=== PATIENT | female | born 1950 | race Caucasian/White ===

== ENCOUNTER → 2019-09-01 11:26 | Outpatient (CLI) | payer MEDICARE, OTHER, SELFPAY ==
--- NOTE | 2019-09-01 11:32 | XR_ITS ---
PROCEDURE: XR CHEST 2V CLINICAL HISTORY: SOB Heart disease COMPARISON: [facility] w ventricle from 04/26/2019 CA echo transesophageal from 05/06/2019 FINDINGS: Mild cardiomegaly. Prior median sternotomy with aortic valve replacement. No CHF. The lungs are clear without infiltrates, suspicious nodules, or pleural effusions. Lower thoracic spine and upper lumbar spine are not well delineated. Degenerative changes are present in the spine. IMPRESSION: Cardiomegaly. Prior aortic valve replacement Dictated by: Deepak Freire MD 09/01/2019 18:08 Electronically signed by Deepak Freire MD in [place] 09/01/2019 18:08
== END ==
PROVIDERS: PCP Student in an Organized Health Care Education/Training Program; Visit Provider Internal Medicine
DX: R06.00 Dyspnea, unspecified (principal)
CPT/HCPCS: 71046

== ENCOUNTER → 2019-09-13 10:42 | Outpatient (CLI) | payer MEDICARE, OTHER, SELFPAY ==
--- NOTE | 2019-09-13 10:43 | CA_ITS ---
APPROVED REPORT EXAM: Comprehensive 2D, Doppler, and color-flow Echocardiogram Core Maker: Sade Hallman RDCS Ht: 5 ft 2 in Wt: 168lbs BSA: 1.78 BP: 100/70 mmHg Indications: AVR PORCINE,MR, POND 2D Dimensions LVOT 1.56 cm (M/F) 1.5-2.5 M-Mode Dimensions RVDd 2.65 cm (0.9-2.6) LVDd 6.39 cm (3.5-5.7) LVDs 4.58 cm (3.5-5.7) IVSd 0.64 cm (0.6-1.1) PWd 0.76 cm (0.6-1.1) EF (Teich) 53.70% FS 28.30% EDV (Teich) 207.80 mL ESV (Teich) 96.30 mL LV Diastology E/A Ratio 0.89 Aortic Valve LVOT Max 107.00 (70-110 cm/s) LVOT VTI 26.74 cm AO VTI 202.70 (18-25 cm) Mitral Valve MV A Velocity 72.00 (40-130 cm/s) Left Ventricle Left atrium is moderately enlarged, left ventricle is mildly dilated, there is preserved left ventricular systolic function, visually estimated ejection fraction 55% with no regional wall motion abnormality. Diastolic parameters are inconclusive. Right Ventricle Right atrium and right ventricular mildly enlarged with normal contractility. Aortic Valve There is a bioprosthetic valve noted in the aortic position, the valve is well-seated, the aortic outflow velocity is mildly increased, the mean gradient across valve is within acceptable range. There is no aortic insufficiency. Mitral Valve Mitral valve leaflets are minimally thickened, there is degenerative changes present both anterior and posterior mitral leaflet, there is no mitral stenosis, there is mitral regurgitation present which is difficult to quantify this is likely in severe range, a transesophageal echocardiogram is recommended for further evaluation. Tricuspid Valve Tricuspid valve is grossly normal, there is moderate tricuspid regurgitation, calculated right ventricular systolic pressure is 52 mmHg consistent with moderately elevated right ventricular systolic pressure. Pulmonic Valve Pulmonic valve is poorly visualized. Great Vessels Aortic root is normal size. Pericardium No significant pericardial effusion noted. Conclusion 1. Biatrial enlargement, mildly dilated left ventricle, mild concentric left ventricular hypertrophy, visually estimated ejection fraction 55% with no regional wall motion abnormality, diastolic parameters are inconclusive. 2. Normal functioning bioprosthetic valve in the aortic position without aortic outflow obstruction or aortic insufficiency. 3. Abnormal mitral valve as described above, there is mitral regurgitation present which is difficult to quantify, this is likely in severe range, if clinically indicated a transesophageal echocardiogram is recommended. 4. Moderate tricuspid regurgitation, calculated right ventricular systolic pressure is 52 mmHg which is moderately elevated. 5. No significant pericardial effusion noted. Electronically signed by : Rodrigo Contreras, 09/13/2019 20:57:51
== END ==
PROVIDERS: PCP Student in an Organized Health Care Education/Training Program; Visit Provider Physician Assistant
DX: I34.0 Nonrheumatic mitral (valve) insufficiency (principal); R06.00 Dyspnea, unspecified; R07.89 Other chest pain; Z95.2 Presence of prosthetic heart valve
CPT/HCPCS: 93306

== ENCOUNTER → 2021-02-28 11:07 | Outpatient (CLI) | payer MEDICARE, OTHER, SELFPAY ==
--- NOTE | 2021-02-28 11:09 | CA_ITS ---
APPROVED REPORT EXAM: Comprehensive 2D, Doppler, and color-flow Echocardiogram Public Health Microbiologist: Anne Panchal CRT Ht: 5 ft 2 in Wt: 169lbs BSA: 1.78 BP: 119/68 mmHg Indications: bovine AVR, MR severe mod tr - RIAZ, cad, SOB, 2D Dimensions LVOT 1.59 cm (M/F) 1.5-2.5 LA Volume 48.00 mL LA Volume Index 27.00 mL/m2 (M/F) 16-34 M-Mode Dimensions RVDd 2.40 cm (0.9-2.6) LA Diam 3.89 cm (1.9-4.0) LVDd 5.46 cm (3.5-5.7) Ao Diam 3.23 cm (2.0-3.7) LVDs 3.85 cm (3.5-5.7) IVSd 1.40 cm (0.6-1.1) PWd 0.97 cm (0.6-1.1) EF (Teich) 55.90% FS 29.50% EDV (Teich) 145.00 mL TAPSE 1.54 (<1.7) ESV (Teich) 63.90 mL LV Diastology E Decel Time 277.00 (160-240 msec) E/A Ratio 0.19 MED E' 9.80 (< 7 cm/sec) MED A' 10.80 cm/s E'/MED E' Ratio 6.31 (>14) LAT E' 8.50 (<10 cm/sec) LAT A' 10.50 cm/s E/LAT E' Ratio 7.27 (>14) Aortic Valve LVOT Max 141.00 (70-110 cm/s) LVOT VTI 26.76 cm AoV Peak Leoncio. 254.00 (50-130 cm/s) AO Peak GR. 26.00 mmHg AO Mean GR. 14.60 (<5 mmHg) AO VTI 50.15 (18-25 cm) FAYE (VTI) 1.06 (2.5-4.5 cm2) Mitral Valve MV A Velocity 327.00 (40-130 cm/s) E/A Ratio 0.19 MV Decel. Time 277.00 (160-240 ms) Pulmonary Valve PV Peak Velocity 71.00 (50-150 cm/s) Tricuspid Valve TR P. Velocity 260.00 cm/s RAP Estimate 10.00 mmHg RVSP 37.10 mmHg Left Ventricle Left atrium is moderately enlarged, left ventricle is normal size, there is mild concentric left ventricular hypertrophy, visually estimated ejection fraction 55% with no regional wall motion abnormality. Grade 1 diastolic dysfunction seen without tissue Doppler evidence of raised left atrial pressure. Right Ventricle Right atrium and right ventricle are mildly enlarged with normal contractility. Aortic Valve There is bioprosthetic valve noted in the aortic position, with the mean gradient across valve is 16 mmHg, there is no aortic insufficiency. Mitral Valve There are degenerative changes present both anterior posterior mitral leaflet, there is mild focal prolapse of the posterior mitral leaflet, there is mitral regurgitation present which is difficult to quantify, this is at least in moderate to severe range, if clinically indicated a transesophageal echocardiogram is recommended. Tricuspid Valve Tricuspid valve leaflets are minimally thickened, there is mild tricuspid regurgitation, calculated right ventricular systolic pressure is 37 mmHg. Pulmonic Valve Pulmonic valve is poorly visualized. Great Vessels Aortic root is normal size. Inferior vena cava is normal size with normal inspiratory collapse. Pericardium No significant pericardial effusion noted. Conclusion 1. Biatrial enlargement, normal left ventricular size, mild concentric left ventricular hypertrophy, visually estimated ejection fraction 55% with no regional wall motion abnormality, grade 1 diastolic dysfunction seen without tissue Doppler evidence of raise left atrial pressure. 2. Normal functioning bioprosthetic valve in the aortic position without significant aortic outflow obstruction or aortic insufficiency. 3. Abnormal mitral valve as described above, there is moderate to severe mitral regurgitation present, if clinically indicated transesophageal echocardiogram is recommended. 4. No significant pericardial effusion noted. Electronically signed by : Rodrigo Contreras, 03/01/2021 15:18:57
[2021-02-28 12:24] LABS: Anion Gap 13.1 mEq/L (5-15); Blood Urea Nitrogen 14 mg/dl (7-17); Calcium 9.4 mg/dl (8.4-10.2); Carbon Dioxide 27 mmol/L (22.0-30.0); Chloride 104 mmol/L (98-107); Estimated Glomerular Filt Rate 55 ml/min (>60); GFR (African American) 66 ML/MIN (>60); Glucose 99 mg/dl (74-100); Potassium 4.1 mmoL/L (3.5-5.1); Sodium 140 mmol/L (136-145)
[2021-02-28 12:33] LABS: NT Pro Brain Natriuretic Pep. 152 pg/mL (0-125)
== END ==
PROVIDERS: PCP Student in an Organized Health Care Education/Training Program; Visit Provider Urology
DX: I34.0 Nonrheumatic mitral (valve) insufficiency (principal); R06.09 Other forms of dyspnea; R07.89 Other chest pain; Z95.2 Presence of prosthetic heart valve
CPT/HCPCS: 36415; 80048; 83880; 93306

== ENCOUNTER 2021-03-16 08:30 | Day surgery (SDC) | payer MEDICARE, OTHER, SELFPAY ==
[2021-03-16] VITALS (19 sets, daily range): BP systolic 95–151; BP diastolic 53–81; PULSE 70–81; RESP 13–20; O2SAT 90–100; BMI 30.9
--- NOTE | 2021-03-16 | IR_ITS ---
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 COMPLICATIONS NONE Estimated Blood Loss: LESS THAN 10 ML TECHNIQUE One percent lidocaine was used to anesthetize the right anterior aspect of the right wrist. The right radial artery was accessed via the Seldinger technique and a 6 Korean hydrophilic sheath was placed in the right radial artery. Following this one percent lidocaine was used to anesthetize the right anterior aspect of the right neck. The right femoral vein was accessed via the Seldinger technique and a 7 Korean sheath was placed in the right femoral vein. Following this an arterial cocktail was administered using 5000U heparin, 2.5 mg verapamil, 1mg Lidocaine and 800mcg nitroglycerin into the right radial sheath. A trap catheter was used to perform selective coronary angiography while a [place]-Geri catheter was used to perform right heart catheterization. Saturations were obtained in the pulmonary artery and right atrium. At the end of the procedure the arterial sheath was removed good hemostasis was achieved using Traclet band. Patient was transferred to the postop holding area in stable condition for venous sheath removal. ANGIOGRAPHIC RESULTS The left main artery Normal The left anterior descending artery Normal The circumflex artery Normal The right coronary artery Dominant normal The BARON ventriculogram reveals Not performed The left ventricular end-diastolic pressure Not obtained Right atrial pressure 7 mmHg Right ventricular 28 over 7 mmHg Pulmonary artery pressure 30/20 mmHg Pulmonary occlusion pressure 20 mmHg RA saturation 72% Pulmonary saturation 72% IMPRESSION Normal coronary arteries Mild pulmonary hypertension Elevated pulmonary occlusion pressure Known mitral regurgitation PLAN 1. Proceed with RIAZ for better evaluation of mitral regurgitation Electronically signed by : Nikunj Veloz, 03/16/2021 10:43:28
--- NOTE | 2021-03-16 | CA_ITS ---
APPROVED REPORT EXAM: Comprehensive 2D, Doppler, and color-flow Echocardiogram Eeg Technologist: Sindy Kathleen RT(R) Ht: 5 ft 2 in Wt: 169lbs BSA: 1.78 BP: 119/68 mmHg Indications: AI, severe MR, MVP, hx Bovine AV, SOB Left Ventricle Left ventricle is normal size, visually estimated ejection fraction 50% with no regional wall motion abnormality in the obtained views. Right Ventricle Right ventricle is mildly enlarged with normal contractility. Atria Left atrium is moderately enlarged, left atrial appendage free of thrombus, there is adequate appendage flow by spectral Doppler. Aortic Valve Aortic valve is bioprosthetic without any restriction in the leaflet mobility, there is no aortic insufficiency. Mitral Valve Mitral valve leaflets have degenerative changes present both anterior posterior mitral leaflet, there is mild focal prolapse of the posterior mitral leaflet, there is mitral regurgitation present which is likely in severe range, the vena contractor measure over centimeter. There is blunting of the systolic forward flow seen in the pulmonary vein. Tricuspid Valve Tricuspid valve leaflets are minimally thickened, there is moderate to severe tricuspid regurgitation. Pulmonic Valve Pulmonic valve is grossly normal. Great Vessels Aortic root is normal size. Pericardium No significant pericardial effusion noted. Conclusion 1. Biatrial enlargement, normal left ventricular size, visually estimated ejection fraction 50% with no regional wall motion abnormality. 2. Abnormal mitral valve as described above, likely severe mitral regurgitation, vena contractor measures over 1 cm. There is no mitral stenosis. 3. Moderate to severe tricuspid regurgitation. 4. No significant pericardial effusion noted. 5. Agitated saline contrast study fails 25 intracardiac shunt. Electronically signed by : Rodrigo Contreras, 03/16/2021 15:20:07
[2021-03-16 09:16] LABS: Basophils # 0.1 K/mm3 (0-0.2); Basophils % 0.6 % (0.1-2.0); Eosinophils # 0.2 K/mm3 (0.0-0.4); Eosinophils % 2.3 % (0.1-12.0); Hematocrit 37.7 % (37.0-47.0); Hemoglobin 12.4 g/dL (12.2-16.2); Lymphocytes # 2.8 K/mm3 (0.7-4.5); Lymphocytes % 30.8 % (10-50); Mean Corpuscular HGB Conc 32.9 g/dL (31.8-35.4); Mean Corpuscular Hemoglobin 28.3 pg (27.0-31.2); Monocytes # 0.6 K/mm3 (0.1-1.0); Monocytes % 6.5 % (1.7-9.3); Neutrophils # 5.4 K/mm3 (1.8-7.8); Neutrophils % 59.7 % (37.0-80.0); Platelet Count 266 K/mm3 (142-424); Red Blood Count 4.38 M/mm3 (4.20-5.40); Red Cell Distribution Width 13.7 % (11.5-17.5)
[2021-03-16 09:36] LABS: Chloride 104 mmol/L (98-107); Potassium 3.8 mmoL/L (3.5-5.1); Sodium 140 mmol/L (136-145)
[2021-03-16 09:39] LABS: Anion Gap 11.8 mEq/L (5-15); Blood Urea Nitrogen 9 mg/dl (7-17); Calcium 9.6 mg/dl (8.4-10.2); Carbon Dioxide 28 mmol/L (22.0-30.0); Creatinine Clearance Estimated 62 mL/min (50-200); Estimated Glomerular Filt Rate 55 ml/min (>60); GFR (African American) 66 ML/MIN (>60); Glucose 98 mg/dl (74-100)
[2021-03-16 11:19] LABS: CATHL Arterial O2 SAT 72.9 % (90-100); CATHL Venous O2 SAT 72.8 % (75-80)
--- NOTE | 2021-03-16 13:43 | SUR.PREOP ---
see [facility] procedure h&p, done the same day.
--- NOTE | 2021-03-16 14:28 | SUR.PHASEII ---
see other procedure for discharge information
--- NOTE | 2021-03-16 14:34 | P.PN_ITS ---
[facility] Anesthesia Checklist - Patient Identification Patient Identification: Arm Band - Structural Data Admitted From: Home Planned Operative Procedure/s: RIAZ Consent for Planned Operative Procedure(s) Verified: Yes Verified Documents: Surgical Consent, History and Physical - NPO Status Verified Time NPO: 00:00 - Additional verifications Anesthesia Reactions: No - Airway Assessment C-Spine Mobility Assessed: Yes (mp2) TMJ Mobility Assessed: Yes Dentition: Good Dentition - Neurological Assessment Level of Consciousness: Awake, Alert - Anesthesia Plan Anesthesia Risk discussed: Yes Anesthesia Plan: Verified ASA Class: III Anesthesia Type: MAC [facility] History I have reviewed the patient's past medical history: Yes Medical History: Reports:: Anxiety, Coronary Artery Disease, Gastroesophageal Reflux Disease(GERD), Hyperlipidemia, Hypertension, Palpitations, Valvular Heart Disease Denies:: Diabetes Mellitus Type 1, Diabetes Mellitus Type 2, Internal Pacemaker, Lung Disease, Seizures *Have you ever received a pneumonia vaccine?: Yes *Have you received a flu vaccine this season?: No Anesthesia experience/problems:: nac Laterality Cases: Right: Total Hip Replacement Other Surgeries: Yes: Cardiac Catheterization, Cardiac Surgery (AVR). No: Pacemaker Amputation: No Fractures: No - *Social History Last grade of school completed: High school graduate Smoking Status: Never smoker Alcohol Intake: never Substance Use Type: denies use *Occupational Status:: retired Housing: house Household Members: spouse *Travel in the last 8 weeks: Inside the [place] - Psychiatric History Pschychiatric History:: Reports:: Anxiety Family Hx:: Coronary Artery Disease
== END 2021-03-16 15:12 | disposition home or self-care (01) ==
LOC: CATHLAB 08:31
PROVIDERS: Internal Medicine Cardiovascular Disease; PCP Student in an Organized Health Care Education/Training Program; Visit Provider Internal Medicine
DX: I27.20 Pulmonary hypertension, unspecified (principal); I34.0 Nonrheumatic mitral (valve) insufficiency; I25.118 Atherosclerotic heart disease of native coronary artery with other forms of angina pectoris; Z95.2 Presence of prosthetic heart valve; I10 Essential (primary) hypertension; E78.5 Hyperlipidemia, unspecified; Z79.899 Other long term (current) drug therapy; Z88.8 Allergy status to other drugs, medicaments and biological substances; K21.9 Gastro-esophageal reflux disease without esophagitis
CPT/HCPCS: 80048; 82810; 85025; 93312; 93460; 99152; 99153; C1725; C1769; C1894; J1644; Q9967; U0003

== ENCOUNTER → 2021-09-14 12:02 | Outpatient (CLI) | payer MEDICARE, OTHER, SELFPAY ==
[2021-09-14 12:33] LABS: Basophils % 0.6 % (0.1-2.0); Eosinophils # 0.2 K/mm3 (0.0-0.4); Eosinophils % 2.2 % (0.1-12.0); Hematocrit 38.3 % (37.0-47.0); Hemoglobin 12.2 g/dL (12.2-16.2); Lymphocytes # 1.6 K/mm3 (0.7-4.5); Lymphocytes % 22.9 % (10-50); Mean Corpuscular Hemoglobin 27.6 pg (27.0-31.2); Mean Corpuscular Volume 86.5 fl (81-99); Mean Platelet Volume 8.8 fl (7.4-10.4); Monocytes # 0.6 K/mm3 (0.1-1.0); Neutrophils # 4.5 K/mm3 (1.8-7.8); Neutrophils % 65.4 % (37.0-80.0); Platelet Count 257 K/mm3 (142-424); Red Blood Count 4.43 M/mm3 (4.20-5.40); Red Cell Distribution Width 14.3 % (11.5-17.5); White Blood Count 6.9 K/mm3 (4.8-10.8)
[2021-09-14 12:48] LABS: Chloride 103 mmol/L (98-107); Potassium 4.5 mmoL/L (3.5-5.1); Sodium 139 mmol/L (136-145)
[2021-09-14 12:51] LABS: Anion Gap 13.5 mEq/L (5-15); Blood Urea Nitrogen 16 mg/dl (7-17); Carbon Dioxide 27 mmol/L (22.0-30.0); Estimated Glomerular Filt Rate 49 ml/min (>60); GFR (African American) 59 ML/MIN (>60)
[2021-09-14 12:52] LABS: Calcium 9.7 mg/dl (8.4-10.2); Glucose 135 mg/dl (74-100)
[2021-09-14 13:02] LABS: NT Pro Brain Natriuretic Pep. 115 pg/mL (0-125)
== END ==
PROVIDERS: Visit Provider Internal Medicine Cardiovascular Disease
DX: I34.0 Nonrheumatic mitral (valve) insufficiency (principal); R00.2 Palpitations; R06.09 Other forms of dyspnea; R07.89 Other chest pain; Z95.2 Presence of prosthetic heart valve; R06.02 Shortness of breath
CPT/HCPCS: 36415; 80048; 83880; 85025

== ENCOUNTER → 2021-12-28 11:45 | Outpatient (CLI) | payer MEDICARE, OTHER, SELFPAY ==
[2021-12-28 13:42] LABS: Alanine Aminotransferase 19 U/L (12-78); Albumin Level 4.4 g/dl (3.5-5.0); Alkaline Phosphatase 66 U/L (38-126); Aspartate Amino Transferase 30 U/L (14-36); Bilirubin,Direct 0.2 mg/dl (0.0-0.4); Bilirubin,Indirect 0.3 mg/dL (0.0-0.9); Bilirubin,Total 0.5 mg/dl (0.2-1.3); Bilirubin,Unconjugated 0.3 mg/dL (0.0-1.1); Blood Urea Nitrogen 19 mg/dl (7-17); Calcium 9.1 mg/dl (8.4-10.2); Carbon Dioxide 28 mmol/L (22.0-30.0); Chloride 100 mmol/L (98-107); Chol/HDL Ratio 2.1 (1-3.5); Cholesterol 173 mg/dl (140-200); Estimated Glomerular Filt Rate 44 ml/min (>60); GFR (African American) 53 ML/MIN (>60); Glucose 110 mg/dl (74-100); HDL Cholesterol 81 mg/dl (40-60); Sodium 136 mmol/L (136-145); Total Protein,Serum 6.7 g/dl (6.3-8.2); Triglycerides 126 mg/dl (30-150); VLDL Cholesterol 25 mg/dL (0-40)
[2021-12-28 13:53] LABS: Direct LDL Cholesterol 54.74 mg/dL (100-129)
== END ==
PROVIDERS: PCP Student in an Organized Health Care Education/Training Program; Visit Provider Internal Medicine Cardiovascular Disease
DX: I34.0 Nonrheumatic mitral (valve) insufficiency (principal); R07.9 Chest pain, unspecified; R42 Dizziness and giddiness; Z95.2 Presence of prosthetic heart valve; Z95.818 Presence of other cardiac implants and grafts; Z98.890 Other specified postprocedural states
CPT/HCPCS: 36415; 80048; 80061; 80076

== ENCOUNTER → 2022-05-10 10:06 | Outpatient (CLI) | payer MEDICARE, OTHER, SELFPAY ==
--- NOTE | 2022-05-10 10:06 | CA_ITS ---
FINAL REPORT TECHNIQUE: Triplett scale, color and spectral doppler images of the bilateral carotid arteries were obtained. CLINICAL HISTORY: dizziness/unsteady gait,HTN FINDINGS: Peak systolic velocity in the right internal carotid artery is 67 cm/sec. The internal carotid to common carotid artery ratio is 1.15. There is no significant carotid artery stenosis and no significant plaque formation. The right vertebral artery is normal in direction. Peak systolic velocity in the left internal carotid artery is in 114 cm/sec. The internal carotid to common carotid artery ratio is 1.84. There is no significant carotid artery stenosis and mild plaque formation. The left vertebral artery is normal in direction. IMPRESSION: No ultrasound evidence of hemodynamically significant carotid artery stenosis. Normal peak systolic velocities and normal internal to common carotid artery ratios bilaterally. Reviewed, Interpreted and Dictated by Bianka Musa MD Transcribed by Elke Morales Authenticated and [facility]
== END ==
PROVIDERS: PCP Student in an Organized Health Care Education/Training Program; Visit Provider Internal Medicine Cardiovascular Disease
DX: R26.81 Unsteadiness on feet (principal); R42 Dizziness and giddiness
CPT/HCPCS: 93880

== ENCOUNTER → 2022-12-27 14:23 | Outpatient (CLI) | payer MEDICARE, OTHER, SELFPAY ==
[2022-12-27 16:37] LABS: Chloride 103 mmol/L (98-107); Sodium 137 mmol/L (136-145)
[2022-12-27 16:38] LABS: Potassium 4.5 mmoL/L (3.5-5.1)
[2022-12-27 16:40] LABS: Blood Urea Nitrogen 13 mg/dl (7-17); Estimated Glomerular Filt Rate 40 ml/min (>60); GFR (African American) 49 ML/MIN (>60)
[2022-12-27 16:41] LABS: Anion Gap 10.5 mEq/L (5-15); Calcium 9.3 mg/dl (8.4-10.2); Carbon Dioxide 28 mmol/L (22.0-30.0); Glucose 85 mg/dl (74-100)
== END ==
PROVIDERS: PCP Student in an Organized Health Care Education/Training Program; Visit Provider Internal Medicine Cardiovascular Disease
DX: R06.09 Other forms of dyspnea (principal); Z95.2 Presence of prosthetic heart valve; Z95.818 Presence of other cardiac implants and grafts; Z98.890 Other specified postprocedural states
CPT/HCPCS: 36415; 80048

== ENCOUNTER → 2023-07-24 11:05 | Outpatient (CLI) | payer MEDICARE, OTHER, SELFPAY ==
--- NOTE | 2023-07-24 11:05 | NM_ITS ---
APPROVED REPORT Exam: Nuclear Stress Test Indication: dizziness..soa..fatigue Patient Location: Outpatient Stress Tech: Maribell Hernandez GA Tech:NESSA Mcgrath RT(R)(N) Ht: 5 ft 2 in Wt: 165 lbs Bra Size: b HR: 63 bpm BP: 137/74 mmHg BSA: 1.76 m2 TID: 1.29 BMI: 30.1 History: dizziness..soa..fatigue Procedure: Patient received 0.4 mg of intravenous Lexiscan, resting heart rate 63 bpm, resting blood pressure 137/74 mmHg, with Lexiscan maximum heart rate achieved was 79 bpm which is 85 % of the maximum predicted heart rate and blood pressure was 137/74 mmHg. With Lexiscan, patient denied any complaint of chest pain. The patient was not able to lay on her abdomen for prone images. Cardiac Stress and Resting SPECT Images: Cardiac Stress and Resting SPECT images were obtained using technetium 99m Myoview 31.8 mCi stress and 10.67 mCi at rest. The patient could not lie on her abdomen. Therefore, prone stress imaging could not be obtained. This may affect the diagnostic interpretation of the study findings. Resting and stress imaging in supine position demonstrate no evidence of fixed or reversible perfusion defects. There is increased transient ischemic dilatation ratio (TID 1.29), suggestive of possible multivessel disease or balanced ischemia. Gated imaging demonstrates normal global and regional LV systolic function. LVEF is calculated at 57%. Conclusion: No evidence of fixed or reversible perfusion defects. Increased transient ischemic dilatation ratio (TID 1.29), suggestive of possible multivessel disease or balanced ischemia. Gated imaging demonstrates normal global and regional LV systolic function. LVEF is calculated at 57%. Electronically signed by : Padma Dumont MD 07/29/2023 21:00:13
--- NOTE | 2023-07-24 11:05 | CA_ITS ---
APPROVED REPORT EXAM: Comprehensive 2D, Doppler, and color-flow Echocardiogram [employer] Worker: Sindy Kathleen RT(R) Ht: 5 ft 2 in Wt: 169lbs BSA: 1.78 BP: 119/60 mmHg Indications: SOB, CP, hx of AVR( bovine) 2018, hx of mitral clip 2020. 2D Dimensions LVOT 1.90 cm (M/F) 1.5-2.5 LVEF (Earl's) 62.10 % F: 54 - 74 LV Volume 85.50 mL F: 46 - 106 LV Volume Index 48.03 mL/m2 F: 29 - 61 LA Volume 43.70 mL LA Volume Index 24.55 mL/m2 (M/F) 16-34 M-Mode Dimensions RVDd 3.00 cm (0.9-2.6) LA Diam 4.69 cm (1.9-4.0) LVDd 5.74 cm (3.5-5.7) Ao Diam 2.06 cm (2.0-3.7) LVDs 4.48 cm (3.5-5.7) IVSd 0.91 cm (0.6-1.1) PWd 0.72 cm (0.6-1.1) EF (Teich) 43.70% FS 22.00% EDV (Teich) 162.60 mL ESV (Teich) 91.50 mL LV Diastology E Decel Time 353.00 (160-240 msec) E/A Ratio 1.02 MED E' 5.10 (< 7 cm/sec) E'/MED E' Ratio 25.65 (>14) LAT E' 8.10 (<10 cm/sec) E/LAT E' Ratio 16.15 (>14) Aortic Valve LVOT Max 118.00 (70-110 cm/s) LVOT VTI 25.61 cm AoV Peak Leoncio. 251.00 (50-130 cm/s) AO Peak GR. 25.20 mmHg AO Mean GR. 12.40 (<5 mmHg) AO VTI 52.84 (18-25 cm) FAYE (VTI) 1.37 (2.5-4.5 cm2) Mitral Valve MV A Velocity 128.00 (40-130 cm/s) E/A Ratio 1.02 MV Decel. Time 353.00 (160-240 ms) MV PHT 123.00 ms Tricuspid Valve TR P. Velocity 340.00 cm/s RAP Estimate 10.00 mmHg RVSP 56.20 mmHg Left Ventricle The left ventricle is normal size. The left ventricular systolic function is normal. The left ventricular ejection fraction is within the normal range. There is increased LV wall thickness. There is normal LV segmental wall motion. There is grade 2 diastolic dysfunction present. LVEF is 50-55%. Right Ventricle The right ventricle is normal size. The right ventricular systolic function is normal. A moderate band is noted (normal variant). Atria Left atrium is moderately dilated. Right atrium is mildly dilated. s/p iatrogenic ASD during MitraClip. On Doppler, the interatrial shunt is not clearly visualized. Aortic Valve s/p bioprosthetic AVR. The prosthesis is well-seated. There is no hemodynamically significant aortic valvular stenosis. Peak velocity 2.6 m/s. Mean AV gradient 13 mmHg. Max AV gradient 27 mmHg. Acceleration time 94 ms. DVI=0.39. There is mild central AI. No paravalvular AI. Mitral Valve s/p MitraClip procedure. No evidence of mitral valve stenosis. Mean MV gradient is 3-4 mmHg (HR 58 bpm). Mild to moderate mitral regurgitation. Tricuspid Valve The tricuspid valve leaflets are thin and pliable. Mild to moderate tricuspid regurgitation. RVSP is 38 mmHg + RA pressure. Pulmonic Valve The pulmonary valve is grossly normal in structure. Trace pulmonic regurgitation. Great Vessels The aortic root is normal in size. The ascending aorta is normal in size. The IVC is not well visualized. Pericardium There is no pericardial effusion. Other Information Study Quality: Fair Conclusion Normal biventricular systolic function. Grade 2 diastolic dysfunction. Biatrial dilation. s/p MitraClip. No MS (mean MV gradient is 3-4 mmHg at HR 58 bpm), mild to moderate MR. s/p bioprosthetic AVR. No hemodynamically significant , mild AI (Peak velocity 2.6 m/s. Mean AV gradient 13 mmHg. Max AV gradient 27 mmHg. Acceleration time 94 ms. DVI=0.39). Mild to moderate TR. Elevated RVSP 38 mmHg + RA pressure. Electronically signed by : Padma Dumont MD 07/26/2023 17:32:59
--- NOTE | 2023-07-24 13:40 | CA_ITS ---
APPROVED REPORT Exam: Pharmacologic Technologist: Maribell Hernandez, Ht: 5 ft 2 in Wt: 169 lbs BSA: 1.78 m2 HR: 58 bpm BP: 137/74 mmHg Indications: SOB Medical History Medications: Omeprazole,,,,, Metoprolol,,,,, Asa,,,,, Pravastatin,,,,, Losartan,,,,, Tizanidine,,,,, Fluoxetine,,,,, Vitamin D2,,,,, SpirOnolactone,,,,, Trazodone,,,,, Ranolazine,,,,, Stress Test Details Test: LEXISCAN Reason for pharmacologic stress test: physical limitation. HR Resting HR: 63 bpm Max Heart Rate (APMHR): 147 bpm Max HR Achieved: 79 bpm Target HR (85% APMHR): 125 bpm % of APMHR: 54 Recovery HR: 69 bpm BP Resting BP: 137.0/74.0 mmHg Max BP: 137.0/74.0 mmHg Recovery BP: 131.0/65.0 mmHg ECG Resting ECG: NSR Stress ECG: No significant ST changes Arrhythmia: Occasional PVCs Clinical Exercise duration: 04:01 min Highest Stage Achieved: Exercise capacity: 1.0 METs Stress ECG Conclusion Symptoms: Head discomfort. No CP. Arrhythmias/Ectopy: Occasional PVC. ST-T Changes: No significant ST changes. Conclusion: Unremarkable Lexiscan stress. Myoview images reoprted separately. Test Summary REST . . . . . . . Resting REST 07:08 . . 63 . 137/ 74 . . Stage 1 01:00 . . 76 . . . . Stage 2 01:00 . . 77 . . . . Stage 3 01:00 . . 75 . 121/ 58 . . Stage 4 01:00 . . 72 . 127/ 65 . . Stage 4 01:01 . . 73 . 127/ 65 . Stop exercise at 04:01 RECOVERY 01:00 . . 72 . 123/ 62 . . RECOVERY 02:00 . . 70 . 123/ 62 . . RECOVERY 03:00 . . 69 . 131/ 65 . . RECOVERY 03:18 . . 68 . 131/ 65 . . Electronically signed by : Padma Dumont MD 07/29/2023 20:57:56
[2023-07-24 14:37] LABS: Basophils % 0.5 % (0.1-2.0); Eosinophils # 0.2 K/mm3 (0.0-0.4); Eosinophils % 2.9 % (0.1-12.0); Hematocrit 34.5 % (37.0-47.0); Hemoglobin 11.5 g/dL (12.2-16.2); Lymphocytes % 30.1 % (10-50); Mean Corpuscular HGB Conc 33.2 g/dL (31.8-35.4); Mean Corpuscular Volume 84.6 fl (81-99); Mean Platelet Volume 8.4 fl (7.4-10.4); Monocytes # 0.4 K/mm3 (0.1-1.0); Monocytes % 6.3 % (1.7-9.3); Neutrophils # 3.9 K/mm3 (1.8-7.8); Neutrophils % 60.3 % (37.0-80.0); Platelet Count 240 K/mm3 (142-424); Red Blood Count 4.08 M/mm3 (4.20-5.40); Red Cell Distribution Width 14.8 % (11.5-17.5); White Blood Count 6.5 K/mm3 (4.8-10.8)
[2023-07-24 15:49] LABS: Alanine Aminotransferase 19 U/L (12-78); Albumin Level 4.3 g/dl (3.5-5.0); Alkaline Phosphatase 61 U/L (38-126); Anion Gap 12.2 mEq/L (5-15); Aspartate Amino Transferase 35 U/L (14-36); Bilirubin,Direct 0.2 mg/dl (0.0-0.4); Bilirubin,Indirect 0.1 mg/dL (0.0-0.9); Bilirubin,Total 0.3 mg/dl (0.2-1.3); Bilirubin,Unconjugated 0.2 mg/dL (0.0-1.1); Blood Urea Nitrogen 14 mg/dl (7-17); Calcium 9.6 mg/dl (8.4-10.2); Carbon Dioxide 29 mmol/L (22.0-30.0); Chloride 99 mmol/L (98-107); Cholesterol 192 mg/dl (140-200); Estimated Glomerular Filt Rate 49 ml/min (>60); GFR (African American) 59 ML/MIN (>60); Glucose 101 mg/dl (74-100); Magnesium 1.9 mg/dl (1.6-2.3); Potassium 4.2 mmoL/L (3.5-5.1); Sodium 136 mmol/L (136-145); Total Protein,Serum 6.9 g/dl (6.3-8.2); Triglycerides 108 mg/dl (30-150); VLDL Cholesterol 22 mg/dL (0-40)
[2023-07-24 15:57] LABS: Chol/HDL Ratio 1.9 (1-3.5); HDL Cholesterol 103 mg/dl (40-60)
[2023-07-24 15:59] LABS: Direct LDL Cholesterol 66.09 mg/dL (100-129)
[2023-07-24 16:05] LABS: Free T4 (Free Thyroxine) 1.13 ng/dl (0.78-2.19)
[2023-07-24 16:18] LABS: Thyroid Stimulating Hormone 0.95 uIU/mL (0.465-4.68)
== END ==
PROVIDERS: PCP Student in an Organized Health Care Education/Training Program; Visit Provider Nurse Practitioner
DX: R06.09 Other forms of dyspnea; Z95.2 Presence of prosthetic heart valve; Z95.818 Presence of other cardiac implants and grafts; Z98.890 Other specified postprocedural states; R07.89 Other chest pain; R06.00 Dyspnea, unspecified; I20.89 Other forms of angina pectoris
CPT/HCPCS: 36415; 78452; 80048; 80061; 80076; 83735; 84439; 84443; 85025; 93017; 93306; A9502; J2785